=== PATIENT | male | born 1965 | race Caucasian/White ===

== ENCOUNTER 2021-07-05 11:16 | Outpatient (CLI) | payer OTHER | END 2021-07-05 11:17 | disposition EMS.NT | LOC: EMS 11:16 | DX: S01.119A Laceration without foreign body of unspecified eyelid and periocular area, initial encounter (principal); X58.XXXA Exposure to other specified factors, initial encounter ==

== ENCOUNTER 2021-07-05 13:02 | Emergency (ER) | payer OTHER ==
[2021-07-05] MEDS ORDERED: CIPROFLOXACIN 250 MG TABLET PO STA (13:04)
[2021-07-05] MEDS ORDERED: TETANUS/DIPHTHERIA/PERTUSSIS 0.5 ML SYRINGE IM ONE (13:04)
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
[2021-07-05 13:44] VITALS: BP 147/98
== END 2021-07-05 13:47 | disposition home or self-care (01) ==
LOC: ED 13:02
DX: S51.852A Open bite of left forearm, initial encounter (principal); Y04.1XXA Assault by human bite, initial encounter; S00.81XA Abrasion of other part of head, initial encounter; Y04.2XXA Assault by strike against or bumped into by another person, initial encounter; N39.0 Urinary tract infection, site not specified
CPT/HCPCS: 99282; 99283